=== PATIENT | male | born 1975 ===

== ENCOUNTER 2018-10-31 09:41 | Outpatient (CLI) | payer OTHER ==
--- NOTE | 2018-10-31 10:51 | PRG ---
DATE OF SERVICE: 10/31/2018 HISTORY: Mr. Artie Brunner is a very pleasant 43-year-old gentleman, who presents to the [facility] for evaluation of 2 ulcerations of the left lower leg. The patient was last seen in the Wound Center on 05/19/2017. The patient states that his ulcerations almost healed completely, but recur when he begins working. He states that he utilizes compression garments. The patient presents today to clinic with his wounds dressed with Telfa, Kerlix, and Coban. The patient also reports that he is trying to stop smoking. PHYSICAL EXAMINATION: VITAL SIGNS: Temperature 97.4, pulse 71, respirations 18, blood pressure 132/80. EXTREMITIES: Two ulcerations of the left lower leg are present. The largest measures approximately 4.8 x 4.5 cm. Necrotic and nonviable tissue present within the wound margins were debrided with an excisional full-thickness debridement with the use of a curette. No purulent drainage is associated with the wound. Granulation tissue is visible within the wound margins. No erythema of the skin surrounding the wound is present. No maceration of the skin of the periwound is noted. A posterior tibial pulse is palpable on the left. Pkhe-gb-ucuhyqel edema of the left foot and lower leg is present on exam today. ASSESSMENT AND PLAN: Chronic venous hypertension with ulcerations. The ulceration will be dressed with Xeroform gauze in conjunction with the 3M Coban 2-layer Compression System. ABDs and Webril will be utilized as needed at the time of dressing changes. I will see Mr. Brunner again in 1 week. Job ID: [id number]
[2018-10-31] MEDS ORDERED: Lidocaine 2% PF 100 mg/5 ml Syringe ONE (15:00)
[2018-10-31] MEDS ORDERED: Sodium Chloride 0.9% 15 ML NEB ONE (15:00)
== END 2018-10-31 09:42 | disposition home or self-care (01) ==
LOC: WCC 09:41
PROVIDERS: ATTEND Family Medicine
DX: I87.312 Chronic venous hypertension (idiopathic) with ulcer of left lower extremity (principal); L97.929 Non-pressure chronic ulcer of unspecified part of left lower leg with unspecified severity
CPT/HCPCS: 11042; 11045; 99213; A4218; G0463; J2001

== ENCOUNTER 2018-11-07 09:46 | Outpatient (CLI) | payer OTHER ==
--- NOTE | 2018-11-07 10:48 | PRG ---
DATE OF SERVICE: 11/07/2018 HISTORY: Mr. Artie Brunner is a very pleasant 43-year-old gentleman, who presents to the Wound Center for evaluation of 2 ulcerations of the left lower leg. At the time of the patient's last visit, the ulcerations were dressed with Xeroform gauze, ABDs, Webril, and the 3M Coban 2 Layer Compression System. The patient has no complaints today. He denies any fever or chills. PHYSICAL EXAMINATION: VITAL SIGNS: Temperature 97.8, pulse 81, respirations 19, blood pressure 123/83. EXTREMITIES: Two ulcerations of the left lower leg are present. The largest ulceration measures approximately 4.0 x 3.9 cm. Granulation tissue is visible within the wound margins. Necrotic and nonviable tissue present within the wound margins was debrided with an excisional full-thickness debridement with the use of a curette. No purulent drainage is associated with the wound. No erythema of the skin surrounding the wound is present. No maceration of the skin of the periwound is noted. A posterior tibial pulse is palpable on the left. Mild to moderate edema of the left foot and lower leg is present on exam today. ASSESSMENT AND PLAN: Chronic venous hypertension with ulcerations. The ulcerations will be dressed with Xeroform gauze, ABDs, Webril, and the 3M Coban 2 Layer Compression System. I will see Mr. Brunner again in one week. Job ID: [id number]
[2018-11-07] MEDS ORDERED: Sodium Chloride 0.9% 15 ML NEB ONE (15:00)
[2018-11-07] MEDS ORDERED: Lidocaine 2% PF 100 mg/5 ml Syringe ONE (15:00)
== END 2018-11-07 09:47 | disposition home or self-care (01) ==
LOC: WCC 09:46
PROVIDERS: ATTEND Family Medicine
DX: I87.312 Chronic venous hypertension (idiopathic) with ulcer of left lower extremity (principal); L97.929 Non-pressure chronic ulcer of unspecified part of left lower leg with unspecified severity
CPT/HCPCS: 11042; 99213; A4218; G0463; J2001

== ENCOUNTER 2018-11-14 10:25 | Outpatient (CLI) | payer OTHER ==
[~2018-11-14 10:25] MED LIST: Lidocaine 2% PF 100 mg/5 ml Syringe ONE; Sodium Chloride 0.9% 15 ML NEB ONE
--- NOTE | 2018-11-14 11:35 | PRG ---
DATE OF SERVICE: 11/14/2018 HISTORY: Mr. Artie Brunner is a very pleasant 43-year-old gentleman, who presents to the [facility]ound Center for evaluation of 2 ulcerations of the left lower leg. The patient has been receiving dressing changes of Xeroform gauze, ABD, Webril, and the 3M Coban 2 layer Compression System on a weekly basis here in the Wound Center. The patient has no complaints today. He denies any fever or chills. PHYSICAL EXAMINATION: VITAL SIGNS: Temperature 98.1, pulse 68, respirations 16, blood pressure 135/89. EXTREMITIES: Two ulcerations of the left lower leg are present. The largest ulceration measures approximately 4.0 x 4.2 cm. Granulation tissue is visible within the wound margins. Necrotic and nonviable tissue present within the wound margins was debrided with an excisional full-thickness debridement with the use of a curette. No purulent drainage is associated with the wound. No erythema of the skin surrounding the wound is present. No maceration of the skin of the periwound is noted. Iiuz-lo-hggrwurr edema of the left foot and lower leg is present on exam today. ASSESSMENT AND PLAN: Chronic venous hypertension with ulcerations. The ulcerations will be dressed with Xeroform gauze, ABD, Webril, and the 3M Coban 2 Layer Compression System. I will see Mr. Brunner again in 1 week. Job ID: [id number]
== END 2018-11-14 10:26 | disposition home or self-care (01) ==
LOC: WCC 10:25
PROVIDERS: ATTEND Family Medicine
DX: I87.312 Chronic venous hypertension (idiopathic) with ulcer of left lower extremity (principal)
CPT/HCPCS: A4218; J2001

== ENCOUNTER 2018-11-21 10:32 | Outpatient (CLI) | payer OTHER ==
--- NOTE | 2018-11-21 11:51 | PRG ---
DATE OF SERVICE: 11/21/2018 SUBJECTIVE: Mr. Artie Brunner is a very pleasant 43-year-old gentleman, who presents to the Wound Center for evaluation of two ulcerations of the left lower leg. The patient has been receiving dressing changes of Xeroform gauze, an ABD, Webril, and 3M Coban 2 Layer Compression System on a weekly basis here in the Wound Center. Mr. Brunner has no complaints today. He denies any fever or chills. OBJECTIVE: VITAL SIGNS: Temperature 97.6, pulse 71, respirations 16, and blood pressure 115/72. EXTREMITIES: Two ulcerations of the left lower leg are present. The largest ulceration measures approximately 3.3 x 3.7 cm. The dimensions of the wound at the time of the patient's visit on 11/14/2018 were approximately 4.0 x 4.2 cm. Granulation tissue was visible within the wound margins. Necrotic and nonviable tissue present within the wound margins was debrided with an excisional full-thickness debridement with the use of a curette. No purulent drainage is associated with the wound. No erythema of the skin surrounding the wound is present. No maceration of the skin of the periwound is noted. Nobc-ku-qoplcvfw edema of the left foot and lower leg present on today's exam. ASSESSMENT AND PLAN: Chronic venous hypertension with ulcerations. The ulcerations will be dressed with Xeroform gauze, ABD, Webril, and 3M Coban 2 Layer Compression System. I will see Mr. Brunner again in one week. Job ID: [id number]
[2018-11-21] MEDS ORDERED: Lidocaine 2% PF 100 mg/5 ml Syringe ONE (17:00)
[2018-11-21] MEDS ORDERED: Sodium Chloride 0.9% 15 ML NEB ONE (17:00)
== END 2018-11-21 10:33 | disposition home or self-care (01) ==
LOC: WCC 10:32
PROVIDERS: ATTEND Family Medicine
DX: I87.312 Chronic venous hypertension (idiopathic) with ulcer of left lower extremity (principal); L97.929 Non-pressure chronic ulcer of unspecified part of left lower leg with unspecified severity
CPT/HCPCS: 11042; A4218; J2001

== ENCOUNTER 2018-11-28 12:00 | Outpatient (CLI) | payer OTHER ==
[~2018-11-28 12:00] MED LIST changes: +Lidocaine 2% 11 ML SYR ONE; -Lidocaine 2% PF 100 mg/5 ml Syringe ONE
== END 2018-11-28 12:01 | disposition home or self-care (01) ==
LOC: WCC 12:00
PROVIDERS: ATTEND Family Medicine
DX: I87.312 Chronic venous hypertension (idiopathic) with ulcer of left lower extremity (principal); L97.929 Non-pressure chronic ulcer of unspecified part of left lower leg with unspecified severity
CPT/HCPCS: 11042; A4218

== ENCOUNTER 2018-12-05 11:14 | Outpatient (CLI) | payer OTHER ==
[~2018-12-05 11:14] MED LIST changes: -Lidocaine 2% 11 ML SYR ONE; +Lidocaine 2% PF 100 mg/5 ml Syringe ONE
--- NOTE | 2018-12-05 12:48 | PRG ---
DATE OF SERVICE: 12/05/2018 HISTORY: Mr. Artie Brunner is a very pleasant 43-year-old gentleman, who presents to the wound center for evaluation of 2 ulcerations of the left lower leg. The patient has been receiving dressing changes of Xeroform gauze, an ABD, Webril, and the 3M Coban 2 Layer Compression System on a weekly basis here in the wound center. The patient has no complaints today. He denies any fever or chills. PHYSICAL EXAMINATION: VITAL SIGNS: Temperature 97.5, pulse 76, respirations 18, and blood pressure 112/71. EXTREMITIES: Two ulcerations of the left lower leg are present, the largest ulceration measures approximately 3.4 x 3.4 cm. The dimensions of the wound at the time of the patient's visit on 11/21/2018 were approximately 3.3 x 3.7 cm. Granulation tissue is visible within the wound margins. Necrotic and nonviable tissue present within the wound margins were debrided with an excisional full-thickness debridement with the use of a curette. No purulent drainage is associated with the wound. No erythema of the skin surrounding the wound is present. No maceration of the skin of the periwound is noted. Tvbq-wz-elpnjxtl edema of the left foot and lower leg is present on exam today. ASSESSMENT AND PLAN: Chronic venous hypertension with ulcerations. The ulcerations will be dressed with Xeroform gauze, an ABD, Webril, and the 3M Coban 2 Layer Compression System. The patient will return to the wound center in 1 week for dressing change. I will see Mr. Brunner again in 2 weeks. Job ID: [id number]
== END 2018-12-05 11:15 | disposition home or self-care (01) ==
LOC: WCC 11:14
PROVIDERS: ATTEND Family Medicine
DX: I87.312 Chronic venous hypertension (idiopathic) with ulcer of left lower extremity (principal); L97.929 Non-pressure chronic ulcer of unspecified part of left lower leg with unspecified severity
CPT/HCPCS: 11042; A4218; J2001

== ENCOUNTER 2018-12-12 14:42 | Outpatient (CLI) | payer OTHER ==
[2018-12-12] MEDS ORDERED: Sodium Chloride 0.9% 15 ML NEB ONE (17:52)
== END 2018-12-12 14:43 | disposition home or self-care (01) ==
LOC: WCC 14:42
PROVIDERS: ATTEND Family Medicine
DX: I87.333 Chronic venous hypertension (idiopathic) with ulcer and inflammation of bilateral lower extremity (principal); L97.929 Non-pressure chronic ulcer of unspecified part of left lower leg with unspecified severity; L97.919 Non-pressure chronic ulcer of unspecified part of right lower leg with unspecified severity
CPT/HCPCS: 29581; A4218

== ENCOUNTER 2018-12-26 11:43 | Outpatient (CLI) | payer OTHER ==
--- NOTE | 2018-12-26 12:21 | PRG ---
DATE OF SERVICE: 12/26/2018 HISTORY: Mr. Artie Brunner is a very pleasant 43-year-old gentleman, who presents to the Wound Center for evaluation of 2 ulcerations of the left lower leg. The patient has been receiving dressing changes of Xeroform gauze, an ABD, Webril, and the 3M Coban 2 Layer Compression System on a weekly basis here in the Wound Center. The patient has no complaints today. He denies any fever or chills. OBJECTIVE: VITAL SIGNS: Temperature 98.5, pulse 92, respirations 14, blood pressure 125/82. EXTREMITIES: Only one ulceration of the left lower leg remains. The dimensions of the wound are approximately 2.8 x 3.4 cm. The dimensions of the wound at the time of the patient's visit on 12/05/2018 were approximately 3.4 x 3.4 cm. Granulation tissue is visible within the wound margins. Necrotic and nonviable tissue present within the wound margins was debrided with an excisional full-thickness debridement with the use of a curette. No purulent drainage is associated with the wound. No erythema of the skin surrounding the wound is present. No maceration of the skin of the periwound is noted. No significant edema of the left foot or lower leg is present on exam today. ASSESSMENT AND PLAN: Chronic venous hypertension with ulceration. The ulceration will be dressed with Xeroform gauze, an ABD, Webril, and the 3M Coban 2 Layer Compression System. I will see Mr. Brunner again in 1 week. Job ID: [id number]
[2018-12-26] MEDS ORDERED: Sodium Chloride 0.9% 15 ML NEB ONE (18:00)
[2018-12-26] MEDS ORDERED: Lidocaine 2% 11 ML SYR ONE (18:00)
== END 2018-12-26 11:44 | disposition home or self-care (01) ==
LOC: WCC 11:43
PROVIDERS: ATTEND Family Medicine
DX: I87.312 Chronic venous hypertension (idiopathic) with ulcer of left lower extremity (principal); L97.929 Non-pressure chronic ulcer of unspecified part of left lower leg with unspecified severity
CPT/HCPCS: A4218

== ENCOUNTER 2019-01-02 11:32 | Outpatient (CLI) | payer OTHER ==
--- NOTE | 2019-01-02 12:32 | PRG ---
DATE OF SERVICE: 01/02/2019 HISTORY: Mr. Artie Brunner is a very pleasant 43-year-old gentleman, who presents to the Wound Center for evaluation of 2 ulcerations of the left lower leg. The patient has been receiving dressing changes of Xeroform gauze, ABD, Webril, and the 3M Coban 2-layer Compression System on a weekly basis here in the Wound Center. The patient has no complaints today. He denies any fever or chills. PHYSICAL EXAMINATION: VITAL SIGNS: Temperature 97.4, pulse 64, respirations 17, blood pressure 148/74. EXTREMITIES: Only one ulceration of the left lower leg remains. The dimensions of the wound are approximately 2.8 x 3.0 cm. The dimensions of the wound at the time of the patient's visit on 12/26/2018 were approximately 2.8 x 3.4 cm. Granulation tissue is visible within the wound margins. Necrotic and nonviable tissue present within the wound margins was debrided with an excisional full-thickness debridement with the use of a curette. No purulent drainage is associated with the wound. No erythema of the skin surrounding the wound is present. No maceration of the skin of the periwound is noted. No significant edema of the left foot or lower leg is present on exam today. ASSESSMENT AND PLAN: Chronic venous hypertension with ulceration. The ulceration will be dressed with Xeroform gauze, ABD, Webril, and the 3M Coban 2-layer Compression System. I will see Mr. Brunner again one week from today. Job ID: [id number]
[2019-01-02] MEDS ORDERED: Sodium Chloride 0.9% 15 ML NEB ONE (18:00)
[2019-01-02] MEDS ORDERED: Lidocaine 2% 11 ML SYR ONE (18:00)
== END 2019-01-02 11:33 | disposition home or self-care (01) ==
LOC: WCC 11:32
PROVIDERS: ATTEND Family Medicine
DX: I87.312 Chronic venous hypertension (idiopathic) with ulcer of left lower extremity (principal); L97.929 Non-pressure chronic ulcer of unspecified part of left lower leg with unspecified severity
CPT/HCPCS: A4218

== ENCOUNTER 2019-01-09 11:22 | Outpatient (CLI) | payer OTHER | END 2019-01-09 11:23 | disposition home or self-care (01) | LOC: WCC 11:22 | PROVIDERS: ATTEND Family Medicine | DX: I87.312 Chronic venous hypertension (idiopathic) with ulcer of left lower extremity (principal); L97.929 Non-pressure chronic ulcer of unspecified part of left lower leg with unspecified severity ==

== ENCOUNTER 2019-01-18 11:50 | Outpatient (CLI) | payer OTHER ==
--- NOTE | 2019-01-18 16:36 | PRG ---
DATE OF SERVICE: 01/18/2019 HISTORY: Mr. Artie Brunner is a very pleasant 44-year-old gentleman, who presents to the Wound Center for evaluation of 2 ulcerations of the left lower leg. The patient has been receiving dressing changes of Xeroform gauze and ABD and 3M Coban 2-Layer Compression System on a weekly basis here in the Wound Center. The patient has no complaints today. He denies any fever or chills. PHYSICAL EXAMINATION: VITAL SIGNS: Temperature 97.5, pulse 71, respirations 18, and blood pressure 129/78. EXTREMITIES: Only one ulceration of the left lower leg remains. The dimensions of the wound are approximately 2.7 x 3.0 cm. The dimensions of the wound at the time of the patient's visit on 01/09/2019 were approximately 2.7 x 2.7 cm. Granulation tissue is visible within the wound margins. Necrotic and nonviable tissue present within the wound margins was debrided with an excisional full-thickness debridement with the use of a curette. Post-debridement measurements were approximately 2.5 x 3.0 cm. No purulent drainage is associated with the wound. No erythema of the skin surrounding the wound is present. No maceration of the skin of the periwound is noted. No significant edema of the left foot or lower leg is present on exam today. ASSESSMENT AND PLAN: Chronic venous hypertension with ulceration. The ulceration will be dressed with Xeroform gauze, an ABD, and the 3M Coban 2-Layer Compression System. I will see Mr. Brunner again in 1 week. Job ID: [id number]
[2019-01-18] MEDS ORDERED: Sodium Chloride 0.9% 15 ML NEB ONE (17:30)
== END 2019-01-18 11:51 | disposition home or self-care (01) ==
LOC: WCC 11:50
PROVIDERS: ATTEND Family Medicine
DX: I87.312 Chronic venous hypertension (idiopathic) with ulcer of left lower extremity (principal); L97.929 Non-pressure chronic ulcer of unspecified part of left lower leg with unspecified severity
CPT/HCPCS: 11042; A4218

== ENCOUNTER 2019-01-25 14:02 | Outpatient (CLI) | payer OTHER ==
--- NOTE | 2019-01-25 13:47 | PRG ---
DATE OF SERVICE: 01/25/2019 HISTORY: Mr. Artie Brunner is a very pleasant 44-year-old gentleman, who presents to the Wound Center for evaluation of an ulceration of the left lower leg. The patient has been receiving dressing changes of Xeroform gauze, an ABD, and the 3M Coban 2 Layer Compression System on a weekly basis here in the Wound Center. The patient has no complaints today. He denies any fever or chills. PHYSICAL EXAMINATION: VITAL SIGNS: Temperature 98.5, pulse 64, respirations 18, and blood pressure 115/73. EXTREMITIES: The ulceration of the left anterior lower leg measures approximately 2.9 x 2.9 cm. The dimensions of the wound at the time of the patient's last visit on 01/18/2019, were approximately 2.7 x 3.0 cm. Granulation tissue is visible within the wound margins. Necrotic and nonviable tissue present within the wound margins was debrided with an excisional full-thickness debridement with the use of a curette. No purulent drainage is associated with the wound. No erythema of the skin surrounding the wound is present. No maceration of the skin of the periwound is noted. Edema of the left foot and lower leg is present on exam today. ASSESSMENT AND PLAN: 1. Chronic venous hypertension with ulceration. The ulceration will be dressed with Medihoney gauze, an ABD, Webril, and the 3M Coban 2 Layer Compression System. I will see Mr. Brunner again in 1 week. 2. Lymphedema tarda. Circumferences of the left lower extremity at the ankle, calf, and knee are 24 cm, 37 cm, and 39 cm on today's exam. Arrangements will be initiated for in-home lymphedema therapy with a pneumatic pump. Job ID: [id number]
[2019-01-25] MEDS ORDERED: Lidocaine 2% Jelly 5 ML TUBE ONE (14:46)
[2019-01-25] MEDS ORDERED: Sodium Chloride 0.9% 15 ML NEB ONE (14:46)
== END 2019-01-25 14:03 | disposition home or self-care (01) ==
LOC: WCC 14:02
PROVIDERS: ATTEND Family Medicine
DX: I87.312 Chronic venous hypertension (idiopathic) with ulcer of left lower extremity (principal); L97.929 Non-pressure chronic ulcer of unspecified part of left lower leg with unspecified severity; I89.0 Lymphedema, not elsewhere classified
CPT/HCPCS: 11042; A4218

== ENCOUNTER 2019-02-01 11:57 | Outpatient (CLI) | payer OTHER ==
--- NOTE | 2019-02-01 14:24 | PRG ---
DATE OF SERVICE: HISTORY: Mr. Artie Brunner is a very pleasant 44-year-old gentleman, who presents to the Wound Center for evaluation of an ulceration of the left anterior lower leg. At the time of the patient's last visit Medihoney, gauze and ABD Webril and the 3M Coban 2 Layer Compression System were applied to the ulceration. The patient has no complaints today. He denies any fever or chills. PHYSICAL EXAMINATION: VITAL SIGNS: Temperature 98.0, pulse 84, blood pressure 119/77. EXTREMITIES: The ulceration of the left anterior lower leg measures approximately 3.0 x 3.0 cm. The dimensions of the wound at the time of the patient's last visit were approximately 2.9 x 2.9 cm. Granulation tissue is visible within the wound margins. Nonviable tissue present within the wound margins was debrided with an excisional full-thickness debridement. No purulent drainage is associated with the wound. No erythema of the skin surrounding the wound is present. No maceration of the skin of the periwound is noted. Edema of the left foot and lower leg is present on today's exam. ASSESSMENT AND PLAN: 1. Chronic venous hypertension with ulceration. The ulceration was dressed with Medihoney, gauze, an ABD, Webril, and the 3M Coban 2 Layer Compression System. The patient is to discontinue the dressings applied in clinic today in 1 week and then begin dressing changes of Medihoney on a daily basis after cleansing and irrigation in conjunction with the use of a compression garment or an Nehemiah bandage. I will see Mr. Brunner again in 2 weeks. 2. Lymphedema tarda. Arrangements were previously initiated for in-home lymphedema therapy with a pneumatic pump. Job ID: [id number]
== END 2019-02-01 11:58 | disposition home or self-care (01) ==
LOC: WCC 11:57
PROVIDERS: ATTEND Family Medicine
DX: I87.312 Chronic venous hypertension (idiopathic) with ulcer of left lower extremity (principal); L97.929 Non-pressure chronic ulcer of unspecified part of left lower leg with unspecified severity; I89.0 Lymphedema, not elsewhere classified
CPT/HCPCS: 11042; A4218; J2001

== ENCOUNTER 2019-02-08 11:30 | Outpatient (CLI) | payer OTHER ==
[2019-02-08] MEDS ORDERED: Sodium Chloride 0.9% 15 ML NEB ONE (21:28)
== END 2019-02-08 11:31 | disposition home or self-care (01) ==
LOC: WCC 11:30
PROVIDERS: ATTEND Family Medicine
DX: I87.312 Chronic venous hypertension (idiopathic) with ulcer of left lower extremity (principal)
CPT/HCPCS: A4218